=== PATIENT | male | born 1960 | race Caucasian/White ===

== ENCOUNTER 2016-11-04 16:37 | Emergency (ER) | payer MEDICAID ==
[2016-11-04] MEDS ORDERED: NORMAL SALINE 1,000 ML IV ONE (17:30)
[2016-11-04] MEDS ORDERED: ONDANSETRON HCL/PF 2 MG/ML VIAL IV ONE (17:30)
[2016-11-04] MEDS ORDERED: MORPHINE SULFATE 2 MG/ML DISP.SYRIN IV ONE (17:30)
--- NOTE | 2016-11-04 17:31 | ERNOTE ---
Back Pain ER HPI Date of Service: 11/04/16 Presenting Symptoms: injury/pain to back Time Seen by Provider: 11/04/16 17:21 Source: patient, family, RN notes reviewed Exam Limitations: no limitations Immunizations: IMMUNIZATION HX Immunizations Up to Date Yes Allergies/Adverse Reactions: Allergies No Known Allergies Allergy (Unverified 11/04/16 16:51) Home Medications: HOME MEDICATIONS Cyclobenzaprine HCl [Flexeril] 10 mg PO TID PRN #30 tab 11/04/16 [Last Taken Unknown] Narrative: 55 y/o male brought to the ED by his mother for back pain that began 6 months ago when he lifted a dog house. He has not been evaluated for this as he has not seen a health care provider in some time. He also reports a cough while copious amounts of white phlegm. He states that he feels like he is drowning when he tries to lay down. He has lost approximately 40 pounds in the past few months. He is concerned about a lesion on his nose that he noticed 2 years ago. His siblings have myoclonic dystonia. He has not been tested for the disease. Quality/Severity: Reports: moderate, aching Location of pain: Reports: lower back, no radiation Activities at Onset: Reports: activity Recent Injury?: Reports: no Possible Precipitating Factor: Reports: lifting Associated Symptoms: Reports: difficulty walking, lightheadedness. Denies: fever/chills, constipation/incontinence, nausea/vomiting, problems urinating, numbess/weakness in legs Prior Treament: Denies: recently seen Review of Systems - Review of Systems Constitutional: Present: fatigue, malaise, decreased activity level. Absent: recent illness, fever, chills EYE: Present: no symptoms reported ENT: Absent: nose congestion, sore throat Respiratory: Present: cough. Absent: shortness of breath, wheezing Cardiology: Absent: chest pain, syncope, edema Gastrointestinal/Abdominal: Present: nausea, diarrhea. Absent: vomiting, eating less, drinking less Genitourinary: Absent: dysuria, hematuria Musculoskeletal: Present: back pain. Absent: neck pain Skin: Present: lesions. Absent: rash, change in color Neurological: Present: dizziness/light-headedness. Absent: weakness, numbness, tingling Endocrine: Present: no symptoms reported Hematologic/Lymphatic: Present: no symptoms reported Psych: Present: no symptoms reported - Patient's Past Medical History Patient History - Medical: No pertinent hx Patient History - Cardiac/Respiratory: No pertinent hx Patient History - Cancer: No Hx of Cancer Patient History - Surgical Procedures: No surgical history Patient History - Other: None - Social History Living Situations: home Psych History: No pertinent hx Smoking Status: Current every day smoker Alcohol Use: none Drug Use: none - Immunizations Immunizations Up to Date: Yes Physical Exam - Physical Exam General Appearance: Present: no apparent distress, cachetic, other - Appears much older than stated age, Ill appearing, Seems to almost fall asleep during conversation Ears, Nose, Throat: Present: dry mucous membranes, other - remains of pepto bismol tablets crusted around mouth. Absent: abnormal TM (R), abnormal TM (L), nasal congestion, pharyngeal erythema Neck: Present: normal inspection, nontender, supple Respiratory: Present: no respiratory distress, normal breath sounds, no accessory muscle use, lungs clear Cardiovascular/Chest: Present: regular rate, rhythm, no murmur, normal peripheral pulses Gastrointestinal/Abdominal: Present: normal bowel sounds, nontender, nondistended, soft Back Exam: Present: normal inspection, normal range of motion, no CVA tenderness , other - Mild lumbar paraspinal muscle tenderness with palpation Extremity Exam: Present: normal inspection, normal range of motion Neurological Exam: Present: alert, oriented. Absent: normal mood/affect Skin Exam: Present: warm/dry, pallor ED Progress - Results and Orders Patient's Lab Results:: I have reviewed the patient's lab results. - Vital Signs Patient's Vital Signs:: I have reviewed the patient's vital signs. Vital Signs: Vital Signs 11/04/16 11/04/16 16:45 17:23 Temperature 36.6 C Pulse Rate 100 88 Respiratory 12 12 Rate Blood Pressure 99/75 115/72 O2 Sat by Pulse 100 99 Oximetry - X-Ray X-Ray #1 X-Ray: abdomen Interpretation: Reviewed by me X-ray Comments: IMPRESSION: 1. Abnormal bowel gas pattern suggestive of colitis. 2. Scattered right-sided intra-abdominal radiodensities, which I suspect is likely a small radiodense pill fragments within bowel segments, or remnant of radiodense medication (e.g. bismuth containing medication). Less likely to represent any potential pathologic calcifications such as right sided nephrolithiasis or ureterolithiasis, but cannot be ruled out. Consider radiographic follow-up, if the patient has persistent symptoms renal colic. Alternatively, consider CT as needed clinically. 3. Additional comments are as above. X-Ray #2 X-Ray: chest Interpretation: Reviewed by me X-ray Comments: No acute findings but hyperinflation suggestive of COPD/emphysema - Progress/Reassessment Chief Complaint: Back Pain Progress:: Improved Plan - Plan Plan: Labs and xrays unremarkable for acute findings. Back pain improved. Patient obviously has some sort of chronic condition that is worsening given his ill appearance and cachexia. Discussed need to establish with a PCP for further evaluation. Departure Clinical Impression: Cachexia Chronic back pain Qualifiers: Back pain location: low back pain Back pain laterality: bilateral Sciatica presence: without sciatica Qualified Code(s): M54.5 - Low back pain - Departure Disposition: Home Follow Up Needed Condition: Stable Instructions: Back Pain, Adult Additional Instructions: Take Tylenol as directed on package for back pain You can also take ibuprofen but make sure to take it with food Muscle relaxant will cause drowsiness Establish with a primary care doctor for further evaluation Prescriptions: Cyclobenzaprine HCl [Flexeril] 10 mg PO TID PRN #30 tab PRN Reason: MUSCLE SPASMS
[2016-11-04 17:43] LABS: Hematocrit 34.8 % (42.0-52.0); Mean Cell Volume 86.1 fl (78-100); Mean Corpuscular Hemoglobin 29.7 pg (27-31); Mean Corpuscular Hgb Conc 34.5 g/dl (32-36); Neutrophil # 2.4 K/mm3 (1.3-6.0); Neutrophil % 56.1 % (42-75.0); Platelet Count 217 K/mm3 (150-450); Red Blood Count 4.04 M/mm3 (4.7-6.0); Red Cell Distribution Width 12.3 % (11.5-14.0); White Blood Count 4.2 K/mm3 (4.0-10.5)
[2016-11-04] MEDS ORDERED: MORPHINE SULFATE 2 MG/ML DISP.SYRIN ONE (17:54)
[2016-11-04] MEDS ORDERED: ONDANSETRON HCL/PF 2 MG/ML VIAL ONE (17:54)
[2016-11-04 17:58] LABS: Albumin * 4.4 gm/dl (3.4-5.0); Anion Gap 15.6 mmol/L (6.8-13.8); BUN/Creatinine Ratio 12.8 (9.0-21.6); Bilirubin, Total 0.8 mg/dL (0.0-1.1); Ca. Corrected For Albumin 9.1 mg/dL (8.4-10.2); Calcium * 9.7 mg/dL (7.9-10.9); Carbon Dioxide 25.2 mmol/L (24-32.6); Potassium 3.8 mmol/L (3.4-4.6); Total Protein 8.1 gm/dL (6.2-8.2)
[2016-11-04 18:37] LABS: Urine Bilirubin Negative (NEGATIVE); Urine Blood Negative /ul (NEGATIVE); Urine Ketone Negative (NEGATIVE); Urine Nitrite Negative (NEGATIVE); Urine Protein Negative (NEGATIVE); Urine Specific Gravity 1.015 SP.GR. (1.005-1.030); Urine Urobilinogen Normal (NORMAL)
[2016-11-04 18:46] LABS: Urine Appearance Clear; Urine Color Yellow
[2016-11-04 18:47] LABS: Urine Bacteria 3+; Urine RBC None Seen /hpf (0-5); Urine WBC None Seen /hpf (0-5)
[2016-11-04 21:29] VITALS: BP 129/86
== END 2016-11-04 19:12 | disposition home or self-care (01) ==
LOC: ER 16:37
DX: R64 Cachexia (principal); M54.5 Low back pain; G89.29 Other chronic pain; F17.200 Nicotine dependence, unspecified, uncomplicated
CPT/HCPCS: 36415; 71020; 74020; 80053; 81001; 85025; 96374; 96375; 99284; J2405